=== PATIENT | female | born 1980 | race Caucasian/White ===

== ENCOUNTER 2017-02-06 02:21 | Emergency (ER) | payer MEDICAID ==
[~2017-02-06] VITALS: Ht 160 cm; Wt 59.0 kg
[2017-02-06 04:00] VITALS: BP 117/76
[2017-02-06] MEDS ORDERED: HYDROcodone-ACET 10/325MG TAB PO ONE (04:00)
[2017-02-06] MEDS ORDERED: KETOROLAC TROMETH 60MG/2ML VIAL IM ONE (04:00)
[2017-02-06] MEDS ORDERED: cefTRIAXone SOD 1,000 MG VL ONE (04:53)
[2017-02-06] MEDS ORDERED: cefTRIAXone W LIDOCAINE 1 GM IM IM ONE (05:00)
== END 2017-02-06 06:55 | disposition home or self-care (01) ==
LOC: ER 02:23
DX: L03.032 Cellulitis of left toe (principal); F17.210 Nicotine dependence, cigarettes, uncomplicated; F12.10 Cannabis abuse, uncomplicated; Z88.6 Allergy status to analgesic agent; Z87.891 Personal history of nicotine dependence
CPT/HCPCS: 73630; 96372; 99284; J0696; J1885

== ENCOUNTER 2017-02-24 16:42 | Inpatient (IN) | payer MEDICAID ==
[~2017-02-24] VITALS: Ht 182.9 cm; Wt 64.3 kg
[2017-02-24] MEDS ORDERED: cefTRIAXone SOD 1,000 MG VL IM ONE (19:00)
[2017-02-24] MEDS ORDERED: SODIUM CHLORIDE 0.9% 1,000 ML IV ONE (19:38)
[2017-02-24] MEDS ORDERED: ONDANSETRON HCL 4 MG/2 ML VIAL IV ONE (19:45)
[2017-02-24] MEDS ORDERED: MORPHINE SULF INJ 2 MG/ML SYRINGE 1ML IV ONE (19:45)
[2017-02-24] MEDS ORDERED: BACITRACIN TOP OINT 1 UD PKG TOP ONE (19:45)
[2017-02-24] MEDS ORDERED: KETOROLAC TROMETH 30 MG/ML 1ML VIAL IV ONE (20:15)
[2017-02-24 20:25] LABS: Basophils # (auto) 0.1 uL; Basophils % (auto) 0.7 % (0.0-2.0); CONDITION Y; Eosinophils # (auto) 0.2 uL; Eosinophils % (auto) 2.3 % (0.0-7.0); Hemoglobin 13.9 g/dL (12.2-16.2); Lymphocytes # (auto) 2.8 uL; Lymphocytes % (auto) 33.1 % (10.0-50.0); Mean Corpuscular Hemoglobin 31.5 pg (28.0-32.0); Mean Corpuscular Hgb Conc. 33.8 g/dL (32.0-36.0); Mean Platelet Volume 8.5 fL (7.4-10.4); Monocytes # (auto) 0.4 uL; Monocytes % (auto) 4.7 % (0.0-12.0); Neutrophils % (auto) 59.2 % (37.0-80.0); Platelet Count (auto) 293 10^3/uL (140-450); Red Cell Distribution Width 13.5 % (11.6-16.0); White Blood Cell 8.5 10^3/uL (4.4-10.8)
[2017-02-24 20:39] LABS: Albumin 3.6 g/dL (3.4-5.0); BUN/Creatinine Ratio 15.6; Calcium 8.3 mg/dL (8.5-10.1); Potassium 3.8 mmol/L (3.5-5.1)
[2017-02-24 20:41] LABS: INR 0.95 (0.9-1.15); Prothrombin Time 10.3 sec (9.37-12.3)
[2017-02-24 20:42] LABS: Bilirubin, Total 0.6 mg/dL (0.2-1.0); Total Protein 7.4 g/dL (6.4-8.2)
[2017-02-24] MEDS ORDERED: ACETAMINOPHEN 325 MG TAB PO PRN (22:15)
[2017-02-24] MEDS ORDERED: ONDANSETRON HCL 4 MG/2 ML VIAL IV PRN (22:15)
[2017-02-24] MEDS ORDERED: TEMAZEPAM 15 MG CAP PO PRN (22:15)
[2017-02-24] MEDS ORDERED: CEFEPIME HYDROCHLORIDE 2 GM in D5W 5% 50 ML IV ONE (22:30)
[2017-02-24] MEDS ORDERED: VANCOMYCIN 1GM/250ML D5W 250 ML IV ONE (22:45)
[2017-02-25] MEDS ORDERED: SODIUM CHLORIDE 0.9% 1,000 ML IV ONE (03:00)
[2017-02-25 04:27] LABS: Basophils # (auto) 0.1 uL; Basophils % (auto) 0.7 % (0.0-2.0); CONDITION Y; Eosinophils # (auto) 0.2 uL; Eosinophils % (auto) 3.3 % (0.0-7.0); Hemoglobin 11.8 g/dL (12.2-16.2); Lymphocytes # (auto) 3.5 uL; Lymphocytes % (auto) 48.1 % (10.0-50.0); Mean Corpuscular Hemoglobin 31.3 pg (28.0-32.0); Mean Corpuscular Hgb Conc. 33.7 g/dL (32.0-36.0); Mean Corpuscular Volume 92.8 fL (80.0-100.0); Mean Platelet Volume 8.9 fL (7.4-10.4); Monocytes # (auto) 0.5 uL; Neutrophils % (auto) 40.9 % (37.0-80.0); Platelet Count (auto) 238 10^3/uL (140-450); Red Cell Distribution Width 14.1 % (11.6-16.0); White Blood Cell 7.3 10^3/uL (4.4-10.8)
[2017-02-25 04:40] LABS: Albumin 2.7 g/dL (3.4-5.0); Calcium 7.4 mg/dL (8.5-10.1); Potassium 3.9 mmol/L (3.5-5.1)
[2017-02-25 04:45] LABS: BUN/Creatinine Ratio 18.7; Bilirubin, Total 0.2 mg/dL (0.2-1.0); Total Protein 5.5 g/dL (6.4-8.2)
[2017-02-25 09:00] VITALS: BP 130/57
[2017-02-25] MEDS: FAMOTIDINE 20 MG TAB PO SCH ×3 (10:00→22:00)
[2017-02-25] MEDS: VANCOMYCIN 1GM/250ML D5W 250 ML IV SCH ×2 (10:12→22:03)
[2017-02-25] MEDS: HYDROcodone-ACET 5/325MG TAB PO PRN (10:19)
[2017-02-25] MEDS: CEFEPIME HYDROCHLORIDE 2 GM in D5W 5% 50 ML IV SCH (12:00)
[2017-02-25 13:00] VITALS: BP 95/56
[2017-02-25 17:00] VITALS: BP 99/55
[2017-02-25 22:00] VITALS: BP 102/67
[2017-02-26] MEDS: CEFEPIME HYDROCHLORIDE 2 GM in D5W 5% 50 ML IV SCH ×2 (00:07→12:00)
[2017-02-26 05:00] VITALS: BP 95/61
[2017-02-26 09:00] VITALS: BP 99/75
[2017-02-26] MEDS: FAMOTIDINE 20 MG TAB PO SCH ×2 (10:00→22:26)
[2017-02-26] MEDS: VANCOMYCIN 1GM/250ML D5W 250 ML IV SCH ×2 (12:45→22:26)
[2017-02-26 13:00] VITALS: BP 103/57
[2017-02-26 16:57] VITALS: BP 113/71
[2017-02-26 22:00] VITALS: BP 122/69
[2017-02-26] MEDS: KETOROLAC TROMETH 30 MG/ML 1ML VIAL IV PRN (22:26)
[2017-02-27] VITALS (7 sets, daily range): BP systolic 102–132; BP diastolic 51–69
[2017-02-27] MEDS: CEFEPIME HYDROCHLORIDE 2 GM in D5W 5% 50 ML IV SCH ×2 (00:26→15:09)
[2017-02-27] MEDS: HYDROcodone-ACET 5/325MG TAB PO PRN (00:36)
[2017-02-27 07:20] LABS: Basophils # (auto) 0 uL; Basophils % (auto) 0.5 % (0.0-2.0); CONDITION Y; Eosinophils # (auto) 0.4 uL; Eosinophils % (auto) 5.1 % (0.0-7.0); Hematocrit 37.4 % (36.0-46.0); Hemoglobin 12.5 g/dL (12.2-16.2); Lymphocytes # (auto) 2.4 uL; Lymphocytes % (auto) 32.8 % (10.0-50.0); Mean Corpuscular Hgb Conc. 33.5 g/dL (32.0-36.0); Mean Corpuscular Volume 92.7 fL (80.0-100.0); Mean Platelet Volume 8.8 fL (7.4-10.4); Monocytes # (auto) 0.6 uL; Monocytes % (auto) 7.8 % (0.0-12.0); Neutrophils % (auto) 53.8 % (37.0-80.0); Platelet Count (auto) 240 10^3/uL (140-450); Red Cell Distribution Width 13.8 % (11.6-16.0); White Blood Cell 7.4 10^3/uL (4.4-10.8)
[2017-02-27 07:51] LABS: BUN/Creatinine Ratio 19.7; Calcium 7.9 mg/dL (8.5-10.1); Potassium 4.6 mmol/L (3.5-5.1)
[2017-02-27] MEDS: FAMOTIDINE 20 MG TAB PO SCH ×2 (10:00→20:32)
[2017-02-27] MEDS: KETOROLAC TROMETH 30 MG/ML 1ML VIAL IV PRN ×3 (11:44→22:49)
[2017-02-27] MEDS: VANCOMYCIN 1GM/250ML D5W 250 ML IV SCH (12:26)
[2017-02-27] MEDS ORDERED: NICOTINE 21MG/24 HR TOPICAL PATCH TD ONE (16:15)
[2017-02-27] MEDS ORDERED: HYDR-4663 PO (20:25)
[2017-02-27] MEDS ORDERED: RISP2TAB59 PO (20:25)
[2017-02-27] MEDS ORDERED: ALBU0.084 NEB (20:25)
[2017-02-27] MEDS ORDERED: VENL25TA2 PO (20:25)
[2017-02-27] MEDS: IPRATROPIUM BROM 0.5 MG/2.5ML INH SOL NEB PRN (20:59)
[2017-02-27] MEDS: ALBUTEROL SULF 2.5 MG/0.5ML(0.5%) NEB SOLN NEB PRN (20:59)
[2017-02-28] MEDS: VANCOMYCIN 1GM/250ML D5W 250 ML IV SCH ×2 (00:17→12:36)
[2017-02-28] MEDS: CEFEPIME HYDROCHLORIDE 2 GM in D5W 5% 50 ML IV SCH ×2 (02:05→14:00)
[2017-02-28 04:46] VITALS: BP 112/66
[2017-02-28 08:00] VITALS: BP 128/73
[2017-02-28 09:00] VITALS: BP 128/73
[2017-02-28] MEDS: ALBUTEROL SULF 2.5 MG/0.5ML(0.5%) NEB SOLN NEB PRN ×2 (09:24→20:56)
[2017-02-28] MEDS: IPRATROPIUM BROM 0.5 MG/2.5ML INH SOL NEB PRN ×2 (09:24→20:56)
[2017-02-28] MEDS: NICOTINE 21MG/24 HR TOPICAL PATCH TD SCH (10:00)
[2017-02-28] MEDS ORDERED: NICOTINE 14 MG/24HR TOPICAL PATCH TD SCH (10:00)
[2017-02-28] MEDS: FAMOTIDINE 20 MG TAB PO SCH ×2 (10:00→20:47)
[2017-02-28 16:55] VITALS: BP 116/54
[2017-02-28] MEDS: KETOROLAC TROMETH 30 MG/ML 1ML VIAL IV PRN (20:42)
[2017-02-28 21:54] VITALS: BP 126/67
[2017-03-01] VITALS (7 sets, daily range): BP systolic 95–123; BP diastolic 48–83
[2017-03-01] MEDS: VANCOMYCIN 1GM/250ML D5W 250 ML IV SCH ×3 (00:13→23:54)
[2017-03-01] MEDS: HYDROcodone-ACET 5/325MG TAB PO PRN ×2 (02:01→23:54)
[2017-03-01] MEDS: CEFEPIME HYDROCHLORIDE 2 GM in D5W 5% 50 ML IV SCH ×2 (02:01→14:38)
[2017-03-01] MEDS: FAMOTIDINE 20 MG TAB PO SCH ×2 (09:56→22:00)
[2017-03-01] MEDS: NICOTINE 21MG/24 HR TOPICAL PATCH TD SCH (09:56)
[2017-03-01 10:56] LABS: Calcium 8.1 mg/dL (8.5-10.1); Potassium 4.6 mmol/L (3.5-5.1)
[2017-03-01] MEDS: KETOROLAC TROMETH 30 MG/ML 1ML VIAL IV PRN (14:37)
[2017-03-02] MEDS: CEFEPIME HYDROCHLORIDE 2 GM in D5W 5% 50 ML IV SCH (01:42)
[2017-03-02 05:00] VITALS: BP 132/82
[2017-03-02 08:00] VITALS: BP 101/59
[2017-03-02 09:00] VITALS: BP 101/59
[2017-03-02] MEDS ORDERED: cefTRIAXone 1GM/50ML D5W 50 ML IV SCH (09:00)
[2017-03-02] MEDS: NICOTINE 21MG/24 HR TOPICAL PATCH TD SCH (09:12)
[2017-03-02] MEDS: FAMOTIDINE 20 MG TAB PO SCH (09:12)
[2017-03-02] MEDS ORDERED: DOCUSATE SOD 100 MG CAP PO PRN (09:15)
[2017-03-02] MEDS ORDERED: HYDROcodone-ACET 7.5/325MG TAB PO PRN (09:15)
[2017-03-02] MEDS ORDERED: KETOROLAC TROMETH 30 MG/ML 1ML VIAL IV PRN (09:15)
[2017-03-02 13:00] VITALS: BP 113/54
[2017-03-02 15:26] VITALS: BP 101/59
== END 2017-03-02 16:15 | disposition short-term general hospital (02) | DRG 344 ==
LOC: ER 16:49 → OVERFLOW 16:50 → CENTRAL 02-25 08:00
PROVIDERS: ADMIT Nurse Practitioner; ATTEND Internal Medicine
DX: M86.8X7 Other osteomyelitis, ankle and foot (principal); L97.524 Non-pressure chronic ulcer of other part of left foot with necrosis of bone; L03.032 Cellulitis of left toe; E78.5 Hyperlipidemia, unspecified; M19.90 Unspecified osteoarthritis, unspecified site; F12.90 Cannabis use, unspecified, uncomplicated; F17.210 Nicotine dependence, cigarettes, uncomplicated; J45.909 Unspecified asthma, uncomplicated; M77.9 Enthesopathy, unspecified; Z82.49 Family history of ischemic heart disease and other diseases of the circulatory system; Z83.3 Family history of diabetes mellitus; Z90.710 Acquired absence of both cervix and uterus; Z98.51 Tubal ligation status; Z88.5 Allergy status to narcotic agent; Z81.8 Family history of other mental and behavioral disorders
CPT/HCPCS: 36415; 71010; 73620; 73700; 73718; 80048; 80053; 80202; 83605; 85025; 85610; 85652; 85730; 87040; 87081; 93005; 93923; 94640; 96361; 96372; 96374; 96375; J0696; J1885; J2405; J7060

== ENCOUNTER 2017-09-07 18:00 | Emergency (ER) | payer MEDICAID ==
[~2017-09-07] VITALS: Ht 160 cm; Wt 62.1 kg
[~2017-09-07 18:00] MED LIST: ALBU0.084 NEB; BACL20TA PO; HYDR-4683 PO; RISP2TAB59 PO; SACC250C PO; SUMA100T15 PO; TRAM50TA2 PO; VENL150C PO
[2017-09-07 20:55] VITALS: BP 120/83
== END 2017-09-07 21:46 | disposition home or self-care (01) ==
LOC: ER 18:03
DX: S39.012A Strain of muscle, fascia and tendon of lower back, initial encounter (principal); S00.03XA Contusion of scalp, initial encounter; J45.909 Unspecified asthma, uncomplicated; E78.00 Pure hypercholesterolemia, unspecified; M19.90 Unspecified osteoarthritis, unspecified site; F17.210 Nicotine dependence, cigarettes, uncomplicated; F12.10 Cannabis abuse, uncomplicated; Z90.710 Acquired absence of both cervix and uterus; Z79.891 Long term (current) use of opiate analgesic; Z79.899 Other long term (current) drug therapy; Z88.1 Allergy status to other antibiotic agents; Z88.5 Allergy status to narcotic agent; V17.0XXA Pedal cycle driver injured in collision with fixed or stationary object in nontraffic accident, initial encounter; Y93.89 Activity, other specified; Y99.8 Other external cause status; Y92.89 Other specified places as the place of occurrence of the external cause
CPT/HCPCS: 70450; 72100

== ENCOUNTER 2017-12-08 11:03 | Emergency (ER) | payer MEDICAID ==
[~2017-12-08] VITALS: Ht 160 cm; Wt 55.3 kg
[2017-12-08 12:16] VITALS: BP 150/94
[2017-12-08] MEDS ORDERED: HYDROcodone-ACET 5/325MG TAB PO ONE (12:30)
[2017-12-08] MEDS ORDERED: KETOROLAC TROMETH 60MG/2ML VIAL IM ONE (12:30)
== END 2017-12-08 13:35 | disposition home or self-care (01) ==
LOC: ER 11:03
DX: M54.2 Cervicalgia (principal); M54.9 Dorsalgia, unspecified; G89.29 Other chronic pain; F17.210 Nicotine dependence, cigarettes, uncomplicated; J45.909 Unspecified asthma, uncomplicated; E78.5 Hyperlipidemia, unspecified; Z98.51 Tubal ligation status; Z90.710 Acquired absence of both cervix and uterus; Z88.1 Allergy status to other antibiotic agents; Z88.6 Allergy status to analgesic agent; V19.9XXA Pedal cyclist (driver) (passenger) injured in unspecified traffic accident, initial encounter; Y93.I9 Activity, other involving external motion; Y92.488 Other paved roadways as the place of occurrence of the external cause; Y99.8 Other external cause status
CPT/HCPCS: 72125; 96372; 99284; J1885

== ENCOUNTER 2018-01-18 21:31 | Emergency (ER) | payer MEDICAID ==
[~2018-01-18] VITALS: Ht 160 cm; Wt 59.0 kg
[2018-01-18 22:50] LABS: Basophils # (auto) 0 uL; Basophils % (auto) 0.4 % (0.0-2.0); Eosinophils # (auto) 0.1 uL; Lymphocytes # (auto) 1.8 uL; Lymphocytes % (auto) 14.5 % (10.0-50.0); Mean Corpuscular Hemoglobin 31.6 pg (28.0-32.0); Mean Corpuscular Hgb Conc. 33.4 g/dL (32.0-36.0); Mean Corpuscular Volume 94.6 fL (80.0-100.0); Monocytes # (auto) 0.8 uL; Monocytes % (auto) 6.2 % (0.0-12.0); Neutrophils # (auto) 9.5 uL; Neutrophils % (auto) 77.9 % (37.0-80.0); Platelet Count (auto) 243 10^3/uL (140-450); Red Blood Cells 4.44 10^6/uL (4.0-5.20); Red Cell Distribution Width 14.5 % (11.8-14.3); White Blood Cell 12.2 10^3/uL (4.4-10.8)
[2018-01-18 23:14] LABS: Albumin 3.9 g/dL (3.4-5.0); Calcium 8.5 mg/dL (8.5-10.1); Potassium 3.5 mmol/L (3.5-5.1)
[2018-01-18 23:16] LABS: BUN/Creatinine Ratio 13.7
[2018-01-18 23:18] LABS: Bilirubin, Total 0.4 mg/dL (0.2-1.0); Total Protein 8.2 g/dL (6.4-8.2)
[2018-01-19 02:56] VITALS: BP 133/91
== END 2018-01-19 05:38 | disposition left against medical advice (07) ==
LOC: ER 21:31
DX: H57.12 Ocular pain, left eye (principal); Z53.21 Procedure and treatment not carried out due to patient leaving prior to being seen by health care provider
CPT/HCPCS: 36415; 80053; 83605; 85025; 87040

== ENCOUNTER 2018-01-19 07:02 | Inpatient (IN) | payer MEDICAID ==
[~2018-01-19] VITALS: Ht 160 cm; Wt 73.0 kg
[2018-01-19] MEDS ORDERED: SODIUM CHLORIDE 0.9% 1,000 ML IV ONE (08:33)
[2018-01-19] MEDS ORDERED: METOCLOPRAMIDE HCL 5MG/ml INJ 2ml VIAL IV ONE (08:45)
[2018-01-19] MEDS ORDERED: KETOROLAC TROMETH 30 MG/ML 1ML VIAL IV ONE (08:45)
[2018-01-19] MEDS ORDERED: VANCOMYCIN 1GM/250ML 250 ML IV ONE (08:45)
[2018-01-19] MEDS ORDERED: IOHEXOL 300 MG/ML 100ML BOTTLE IJ ONE (09:42)
[2018-01-19] MEDS ORDERED: IBUPROFEN 400 MG TAB PO PRN (12:15)
[2018-01-19] MEDS ORDERED: ACETAMINOPHEN 500 MG TAB PO PRN (12:15)
[2018-01-19] MEDS ORDERED: LACTULOSE 20Gm/30ML SOLN PO PRN (12:15)
[2018-01-19] MEDS ORDERED: PIPERACILLIN-TAZOB 3.375GM 100 ML IV ONE (12:15)
[2018-01-19] MEDS ORDERED: VANCOMYCIN PER PHARMACY 0 MG IV SCH (12:15)
[2018-01-19] MEDS ORDERED: NITROGLYCERIN 0.4 MG SL TAB SL PRN (12:15)
[2018-01-19] MEDS: SODIUM CHLORIDE 0.9% 1,000 ML IV SCH ×2 (12:37→21:51)
[2018-01-19 12:51] LABS: Basophils # (auto) 0 uL; Basophils % (auto) 0.3 % (0.0-2.0); Eosinophils # (auto) 0.2 uL; Eosinophils % (auto) 1.8 % (0.0-7.0); Hematocrit 39.1 % (36.0-46.0); Lymphocytes # (auto) 2.3 uL; Lymphocytes % (auto) 22.6 % (10.0-50.0); Mean Corpuscular Hemoglobin 31.1 pg (28.0-32.0); Mean Corpuscular Hgb Conc. 33.1 g/dL (32.0-36.0); Mean Corpuscular Volume 93.8 fL (80.0-100.0); Monocytes # (auto) 0.8 uL; Monocytes % (auto) 7.6 % (0.0-12.0); Neutrophils # (auto) 6.8 uL; Neutrophils % (auto) 67.7 % (37.0-80.0); Platelet Count (auto) 208 10^3/uL (140-450); Red Blood Cells 4.17 10^6/uL (4.0-5.20); Red Cell Distribution Width 14.4 % (11.8-14.3)
[2018-01-19 13:12] LABS: Urine Bacteria NONE SEEN /hpf (None Seen); Urine Blood Negative /uL (Negative); Urine WBC 1 /hpf (0 - 5)
[2018-01-19 13:12] LABS: Albumin 2.9 g/dL (3.4-5.0); BUN/Creatinine Ratio 11.3; Bilirubin, Total 0.2 mg/dL (0.2-1.0); Potassium 3.7 mmol/L (3.5-5.1); Total Protein 6.2 g/dL (6.4-8.2)
[2018-01-19 13:33] LABS: Alcohol, Urine < 3.0 mg/dL (0-5); Amphetamine Screen, Urine POSITIVE (NEGATIVE); Barbiturate Scree,Urine NEGATIVE (NEGATIVE); Benzodiazephine Screen, Urine NEGATIVE (NEGATIVE); Cannabinoid Screen, Urine POSITIVE (NEGATIVE); Cocaine Screen, Urine NEGATIVE (NEGATIVE); Opiate Scree,Urine NEGATIVE (NEGATIVE); Phencyclidine Screen, Urine NEGATIVE (NEGATIVE)
[2018-01-19 17:10] VITALS: BP 124/93
[2018-01-19 17:11] VITALS: BP 124/93
[2018-01-19] MEDS: PIPERACILLIN-TAZOB 3.375GM 100 ML IV SCH (18:34)
[2018-01-19 20:00] VITALS: BP 119/57
[2018-01-19] MEDS: KETOROLAC TROMETH 30 MG/ML 1ML VIAL IV PRN (20:17)
[2018-01-19] MEDS: VANCOMYCIN 750 MG in D5W 5% 250 ML IV SCH (21:51)
[2018-01-19 21:57] VITALS: BP 119/57
[2018-01-20] MEDS: KETOROLAC TROMETH 30 MG/ML 1ML VIAL IV PRN ×3 (04:26→18:20)
[2018-01-20 04:56] VITALS: BP 145/92
[2018-01-20] MEDS: PIPERACILLIN-TAZOB 3.375GM 100 ML IV SCH ×3 (06:00→11:48)
[2018-01-20 06:45] LABS: Basophils # (auto) 0 uL; Basophils % (auto) 0.5 % (0.0-2.0); Eosinophils # (auto) 0.2 uL; Eosinophils % (auto) 2.6 % (0.0-7.0); Hematocrit 40.5 % (36.0-46.0); Hemoglobin 13.6 g/dL (12.2-16.2); Lymphocytes # (auto) 2.1 uL; Lymphocytes % (auto) 24.2 % (10.0-50.0); Mean Corpuscular Hemoglobin 31.7 pg (28.0-32.0); Mean Corpuscular Hgb Conc. 33.7 g/dL (32.0-36.0); Mean Corpuscular Volume 94.1 fL (80.0-100.0); Monocytes # (auto) 0.6 uL; Monocytes % (auto) 7.1 % (0.0-12.0); Neutrophils # (auto) 5.7 uL; Neutrophils % (auto) 65.6 % (37.0-80.0); Platelet Count (auto) 234 10^3/uL (140-450); Red Cell Distribution Width 13.9 % (11.8-14.3); White Blood Cell 8.7 10^3/uL (4.4-10.8)
[2018-01-20 08:33] VITALS: BP 95/53
[2018-01-20] MEDS: SODIUM CHLORIDE 0.9% 1,000 ML IV SCH ×2 (09:53→13:32)
[2018-01-20] MEDS: VANCOMYCIN 750 MG in D5W 5% 250 ML IV SCH ×2 (10:30→22:24)
[2018-01-20 12:52] VITALS: BP 126/60
[2018-01-20] MEDS: cefTRIAXone 1GM/10ml IVPUSH 10 ML IV SCH (13:31)
[2018-01-20] MEDS: HYDROcodone-ACET 5/325MG TAB PO PRN ×2 (13:36→21:07)
[2018-01-20 17:00] VITALS: BP 117/67
[2018-01-20 20:00] VITALS: BP 130/99
[2018-01-20 22:00] VITALS: BP 130/99
[2018-01-20] MEDS: FAMOTIDINE 20 MG TAB PO SCH (22:00)
[2018-01-20] MEDS: GENTAMICIN OPTH sol 0.3% 5ml EACHEYE SCH (22:24)
[2018-01-21] MEDS: KETOROLAC TROMETH 30 MG/ML 1ML VIAL IV PRN ×3 (02:39→16:27)
[2018-01-21] MEDS: SODIUM CHLORIDE 0.9% 1,000 ML IV SCH (05:01)
[2018-01-21] MEDS: GENTAMICIN OPTH sol 0.3% 5ml EACHEYE SCH ×4 (05:01→18:00)
[2018-01-21 05:30] VITALS: BP 91/54
[2018-01-21] MEDS: cefTRIAXone 1GM/10ml IVPUSH 10 ML IV SCH (09:11)
[2018-01-21 09:56] VITALS: BP 101/52
[2018-01-21] MEDS: FAMOTIDINE 20 MG TAB PO SCH ×3 (10:00→22:07)
[2018-01-21] MEDS ORDERED: LORazepam 2MG/ML-1ML VIAL IV ONE (11:30)
[2018-01-21] MEDS ORDERED: LIDOCAINE 1% (LOCAL ANESTH.) PF 5ml SDV ID ONE (11:45)
[2018-01-21] MEDS: VANCOMYCIN 1GM/250ML 250 ML IV SCH ×2 (11:47→22:07)
[2018-01-21 12:26] VITALS: BP 117/63
[2018-01-21] MEDS: HYDROcodone-ACET 5/325MG TAB PO PRN (13:50)
[2018-01-21 13:55] VITALS: BP 114/80
[2018-01-21 17:29] VITALS: BP 111/78
[2018-01-21 22:00] VITALS: BP 117/67
[2018-01-22] MEDS: KETOROLAC TROMETH 30 MG/ML 1ML VIAL IV PRN ×3 (00:10→20:46)
[2018-01-22 05:30] VITALS: BP 108/71
[2018-01-22] MEDS: GENTAMICIN OPTH sol 0.3% 5ml EACHEYE SCH ×4 (06:09→18:00)
[2018-01-22 08:18] LABS: Alanine Aminotransferase 21 U/L (13-56); Albumin 2.5 g/dL (3.4-5.0); Alkaline Phosphatase 54 U/L (45-117); Anion Gap 6 (5-15); Aspartate Aminotransferase 14 U/L (15-37); BUN/Creatinine Ratio 18.3; Bilirubin, Total < 0.1 mg/dL (0.2-1.0); Blood Urea Nitrogen 13 mg/dL (7-18); Calcium 8.1 mg/dL (8.5-10.1); Carbon Dioxide 28 mmol/L (21-32); Chloride 107 mmol/L (98-107); GFR African American 119 mL/min; GFR Non-African American 98 mL/min; Glucose 89 mg/dL (74-106); Potassium 4.4 mmol/L (3.5-5.1); Sodium 141 mmol/L (136-145); Total Protein 5.5 g/dL (6.4-8.2)
[2018-01-22 09:26] VITALS: BP 103/57
[2018-01-22] MEDS: cefTRIAXone 1GM/10ml IVPUSH 10 ML IV SCH (09:28)
[2018-01-22] MEDS: VANCOMYCIN 1GM/250ML 250 ML IV SCH ×2 (09:29→22:02)
[2018-01-22] MEDS: FAMOTIDINE 20 MG TAB PO SCH ×2 (09:29→22:00)
[2018-01-22] MEDS ORDERED: CHLORHEXIDINE 4% TOPICAL soln 237ML TOP SCH (10:00)
[2018-01-22 13:00] VITALS: BP 137/76
[2018-01-22] MEDS: BACITRACIN TOP OINT 1 UD PKG TOP SCH ×2 (14:00→22:02)
[2018-01-22 18:05] VITALS: BP 117/62
[2018-01-22 21:32] VITALS: BP 123/79
[2018-01-23 04:52] VITALS: BP 113/70
[2018-01-23] MEDS: GENTAMICIN OPTH sol 0.3% 5ml EACHEYE SCH ×4 (06:17→18:02)
[2018-01-23] MEDS: BACITRACIN TOP OINT 1 UD PKG TOP SCH ×3 (06:17→22:29)
[2018-01-23] MEDS: KETOROLAC TROMETH 30 MG/ML 1ML VIAL IV PRN ×2 (06:18→19:23)
[2018-01-23 07:32] VITALS: BP 120/80
[2018-01-23] MEDS: cefTRIAXone 1GM/10ml IVPUSH 10 ML IV SCH (09:44)
[2018-01-23] MEDS: FAMOTIDINE 20 MG TAB PO SCH ×2 (09:45→22:00)
[2018-01-23] MEDS: VANCOMYCIN 1GM/250ML 250 ML IV SCH ×2 (09:45→22:29)
[2018-01-23 12:28] VITALS: BP 120/90
[2018-01-23 16:47] VITALS: BP 130/61
[2018-01-23] MEDS: HYDROcodone-ACET 5/325MG TAB PO PRN (21:13)
[2018-01-23 21:53] VITALS: BP 136/85
[2018-01-24] MEDS: KETOROLAC TROMETH 30 MG/ML 1ML VIAL IV PRN (04:11)
[2018-01-24 04:55] VITALS: BP 127/71
[2018-01-24] MEDS: GENTAMICIN OPTH sol 0.3% 5ml EACHEYE SCH ×3 (06:32→14:00)
[2018-01-24] MEDS: BACITRACIN TOP OINT 1 UD PKG TOP SCH ×2 (06:32→14:00)
[2018-01-24] MEDS: HYDROcodone-ACET 5/325MG TAB PO PRN (06:33)
[2018-01-24 08:00] VITALS: BP 127/82
[2018-01-24] MEDS: cefTRIAXone 1GM/10ml IVPUSH 10 ML IV SCH (09:40)
[2018-01-24] MEDS: FAMOTIDINE 20 MG TAB PO SCH ×2 (09:41→09:53)
[2018-01-24] MEDS: VANCOMYCIN 1GM/250ML 250 ML IV SCH (10:00)
[2018-01-24] MEDS ORDERED: DOXY-216 PO (11:38)
[2018-01-24] MEDS ORDERED: MUPI2OIN10 EACHNOSTRI (11:38)
[2018-01-24 11:46] LABS: Basophils # (auto) 0 uL; Basophils % (auto) 0.6 % (0.0-2.0); Eosinophils # (auto) 0.2 uL; Eosinophils % (auto) 2.8 % (0.0-7.0); Hematocrit 38.5 % (36.0-46.0); Hemoglobin 12.7 g/dL (12.2-16.2); Lymphocytes # (auto) 2.1 uL; Lymphocytes % (auto) 32.7 % (10.0-50.0); Mean Corpuscular Hemoglobin 31.2 pg (28.0-32.0); Mean Corpuscular Hgb Conc. 33.1 g/dL (32.0-36.0); Mean Corpuscular Volume 94.3 fL (80.0-100.0); Monocytes # (auto) 0.4 uL; Monocytes % (auto) 6.5 % (0.0-12.0); Neutrophils # (auto) 3.7 uL; Neutrophils % (auto) 57.4 % (37.0-80.0); Nucleated Red Blood Cells % 0.2 %; Platelet Count (auto) 247 10^3/uL (140-450); Red Blood Cells 4.08 10^6/uL (4.0-5.20); Red Cell Distribution Width 14.2 % (11.8-14.3); White Blood Cell 6.5 10^3/uL (4.4-10.8)
[2018-01-24 12:07] LABS: BUN/Creatinine Ratio 18.1; Calcium 8.5 mg/dL (8.5-10.1); Potassium 4.6 mmol/L (3.5-5.1)
[2018-01-24 13:36] VITALS: BP 131/83
[2018-01-24] MEDS ORDERED: VANCOMYCIN 1GM/250ML 250 ML IV SCH (14:00)
[2018-01-24] MEDS ORDERED: CHLORHEXIDINE 4% TOPICAL soln 237ML TOP SCH (14:00)
== END 2018-01-24 14:20 | disposition home or self-care (01) | DRG 82 ==
LOC: ER 07:05 → TELE 07:06 → TELE-EAST 16:47 → EAST 01-21 02:07
PROVIDERS: ADMIT Internal Medicine; ATTEND Internal Medicine
PROC: 089 Eye, Drainage (ICD-10-PCS; principal; 2018-01-21)
DX: H00.034 Abscess of left upper eyelid (principal); E44.0 Moderate protein-calorie malnutrition; L03.213 Periorbital cellulitis; J45.909 Unspecified asthma, uncomplicated; E78.5 Hyperlipidemia, unspecified; F15.90 Other stimulant use, unspecified, uncomplicated; F31.9 Bipolar disorder, unspecified; F12.90 Cannabis use, unspecified, uncomplicated; B95.62 Methicillin resistant Staphylococcus aureus infection as the cause of diseases classified elsewhere; F17.200 Nicotine dependence, unspecified, uncomplicated; G43.909 Migraine, unspecified, not intractable, without status migrainosus; M19.90 Unspecified osteoarthritis, unspecified site; Z98.51 Tubal ligation status; Z90.710 Acquired absence of both cervix and uterus; Z83.3 Family history of diabetes mellitus; Z88.6 Allergy status to analgesic agent; Z88.1 Allergy status to other antibiotic agents; Z82.49 Family history of ischemic heart disease and other diseases of the circulatory system; Z68.28 Body mass index [BMI] 28.0-28.9, adult
CPT/HCPCS: 36415; 70481; 80048; 80053; 80202; 80307; 81001; 81025; 85025; 85652; 87040; 87077; 87081; 87186; 87205; 96365; 96366; 96375; J1885; J2543; J7060